=== PATIENT | female | born 1985 | race Caucasian/White ===

== ENCOUNTER 2022-03-17 08:58 | Outpatient (CLI) | payer OTHER | END 2022-03-17 11:49 | disposition home or self-care (01) | LOC: NST 08:58 | PROVIDERS: ATTEND Obstetrics & Gynecology | DX: Z34.83 Encounter for supervision of other normal pregnancy, third trimester (principal) ==

== ENCOUNTER 2022-04-05 12:04 | Inpatient (IN) | payer OTHER ==
[~2022-04-05] VITALS: Ht 154.9 cm; Wt 70.8 kg
[2022-04-05] MEDS ORDERED: COMPLETE NATAL1 EACH PO (13:25)
[2022-04-05] MEDS ORDERED: SYNTHROID50 MCG PO (13:26)
== END 2022-04-06 09:38 | disposition home or self-care (01) | DRG 833 ==
LOC: NST 12:04 → LDR 12:27
PROVIDERS: ADMIT Obstetrics & Gynecology Maternal & Fetal Medicine; ATTEND Obstetrics & Gynecology Maternal & Fetal Medicine
PROC: 4A1HXCZ Monitoring of Products of Conception, Cardiac Rate, External Approach (ICD-10-PCS; principal; 2022-04-05)
PROC: BY4FZZZ Ultrasonography of Third Trimester, Single Fetus (ICD-10-PCS; 2022-04-05)
DX: O36.8130 Decreased fetal movements, third trimester, not applicable or unspecified (principal); O26.843 Uterine size-date discrepancy, third trimester; Z3A.36 36 weeks gestation of pregnancy; Z20.822 Contact with and (suspected) exposure to COVID-19

== ENCOUNTER 2022-04-08 08:38 | Outpatient (CLI) | payer OTHER ==
[~2022-04-08 08:38] MED LIST: COMPLETE NATAL1 EACH PO; SYNTHROID50 MCG PO
== END 2022-04-08 09:32 | disposition home or self-care (01) ==
LOC: NST 08:38
PROVIDERS: ATTEND Obstetrics & Gynecology Maternal & Fetal Medicine
DX: Z34.83 Encounter for supervision of other normal pregnancy, third trimester (principal)

== ENCOUNTER 2022-04-19 10:11 | Outpatient (CLI) | payer OTHER | END 2022-04-19 10:55 | disposition home or self-care (01) | LOC: NST 10:11 | PROVIDERS: ATTEND Obstetrics & Gynecology Gynecology | DX: Z34.83 Encounter for supervision of other normal pregnancy, third trimester (principal) ==

== ENCOUNTER 2022-04-19 17:20 | Inpatient (IN) | payer OTHER ==
[~2022-04-19] VITALS: Ht 154.9 cm; Wt 2.3 kg
== END 2022-04-23 12:36 | disposition home or self-care (01) | DRG 788 ==
LOC: LDR 17:20 → O/R 04-20 15:19 → OB/GYN 04-20 16:39
PROVIDERS: ADMIT Obstetrics & Gynecology Maternal & Fetal Medicine; ATTEND Obstetrics & Gynecology Maternal & Fetal Medicine
PROC: 4A1HXCZ Monitoring of Products of Conception, Cardiac Rate, External Approach (ICD-10-PCS; 2022-04-19)
PROC: 10D00Z1 Extraction of Products of Conception, Low, Open Approach (ICD-10-PCS; principal; 2022-04-20 17:00)
DX: O36.5930 Maternal care for other known or suspected poor fetal growth, third trimester, not applicable or unspecified (principal); Z3A.39 39 weeks gestation of pregnancy; Z37.0 Single live birth; Z20.822 Contact with and (suspected) exposure to COVID-19